=== PATIENT | male | born 1965 | race Caucasian/White ===

== ENCOUNTER 2020-04-18 04:23 | Observation (INO) | payer SELFPAY ==
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
[2020-04-18 05:04] LABS: Absolute Neutrophil Ct (ANC) 3.27 (1.4-6.9); BASOPHIL % 0.3 % (0.0-0.4); Basophil (Absolute #) 0.02 (0-0.4); Eosinophil % 1.3 % (0.00-5.0); Eosinophil (Absolute #) 0.08 (0-0.5); Hematocrit 49.2 % (42-50); Hemoglobin 16.8 gm/dl (12.5-18.0); Lymphocyte (Absolute #) 2.29 (1.0-4.6); Lymphocytes % 37.2 % (24.0-44.0); Mean Cell Volume 89.3 fl (78-100); Mean Corpuscular Hemoglobin 30.5 pg (26-32); Mean Corpuscular Hgb Concent. 34.1 g/dl (32-36); Mean Platelet Volume 11.1 fl (7.5-11.0); Monocytes % 8.1 % (0.0-12.0); Neutrophil % 53.1 % (36.0-66.0); Platelet Count 195 K/mm3 (150-450); Red Blood Count 5.51 M/mm3 (4.1-5.6); Red Cell Distribution Width 12.5 % (11.5-14.0); White Blood Count 6.2 K/mm3 (4.0-10.5)
[2020-04-18 05:20] LABS: ACETAMINOPHEN < 10 ug/ml (10-30); ALBUMIN 5.1 g/dL (3.5-5.0); ALKALINE PHOSPHATASE 86 U/L (38-126); ANION GAP 21.2 MEQ/L (5-15); BLOOD UREA NITROGEN 21 mg/dL (9-20); CHLORIDE 98 mmol/L (98-107); Calcium 9.8 mg/dL (8.4-10.2); Carbon Dioxide 24 mmol/L (22-30); Creatinine 1 1.05 mg/dL (0.66-1.25); Glucose 404 mg/dL (74-106); Potassium 5.5 mmol/L (3.5-5.1); SGOT/AST 21 U/L (17-59); SGPT/ALT 27 U/L (0-50); SODIUM 137 mmol/L (137-145); Total Protein 8.6 g/dL (6.3-8.2)
[2020-04-18 05:31] LABS: Appearance CLEAR (CLEAR); Bilirubin NEGATIVE (NEGATIVE); Blood NEGATIVE Ery/ul (0-5); Glucose >=500 mg/dL (NEGATIVE); Ketones NEGATIVE (NEGATIVE); Leukocyte Esterase NEGATIVE (NEGATIVE); Nitrite NEGATIVE (NEGATIVE); Protein,Urine Dip NEGATIVE (Negative); Urobilinogen NEGATIVE mg/dL (0-1)
[2020-04-18 05:37] LABS: Bacteria NONE SEEN /HPF (NEGATIVE); RBC NONE SEEN /HPF (0-2)
[2020-04-18 05:44] LABS: Amphetamine,Urine NEGATIVE (NEGATIVE); Barbiturate,Urine NEGATIVE (NEGATIVE); Benzodiazepine,Urine NEGATIVE (NEGATIVE); Cocaine,Urine NEGATIVE (NEGATIVE); Methadone,Urine NEGATIVE (NEGATIVE); Opiate,Urine NEGATIVE (NEGATIVE); PCP,Urine NEGATIVE (NEGATIVE); THC,Urine NEGATIVE (NEGATIVE)
[2020-04-18 05:58] LABS: VBG BASE EXCESS -2.4 (-2.0-2.0); VBG CARBOXYHEMOGLOBIN 2.2 % T HGB (0.0-6.9); VBG HCO3- 23.7 meq/L (22-28); VBG HEMOGLOBIN 16.1; VBG POTASSIUM 5.4 (3.5-5.1); VBG pH 7.33 (7.32-7.42)
[2020-04-18] MEDS ORDERED: Sodium Chloride 0.9% 1000 ML 1,000 ML ONE ×2 (06:03→07:06)
[2020-04-18] MEDS ORDERED: Sodium Chloride 0.9% 1000 ML 1,000 ML IV STA ×4 (06:04→18:08)
[2020-04-18] MEDS ORDERED: HUMULIN R IV ONE (06:31)
[2020-04-18] MEDS ORDERED: HUMULIN R ONE (06:37)
[2020-04-18] MEDS ORDERED: Ativan 2 MG/1 ML VIAL IV PRN (08:36)
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
[2020-04-18] MEDS: Effexor XR 75 MG PO SCH (10:28)
[2020-04-18] MEDS: Glucophage XR 500 MG PO SCH ×2 (10:28→21:46)
[2020-04-18] MEDS: VITAMIN B-1 100 MG PO SCH (10:30)
[2020-04-18] MEDS: Pepcid 20 MG VIAL IV SCH ×2 (10:30→21:47)
[2020-04-18] MEDS: Zestril 10 MG PO SCH (10:30)
[2020-04-18] MEDS: Sodium Chloride 0.9% 1000 ML 1,000 ML IV SCH (11:44)
[2020-04-18] MEDS: HUMALOG SQ PRN ×3 (13:13→18:07)
[2020-04-19] MEDS: Sodium Chloride 0.9% 1000 ML 1,000 ML IV SCH (03:55)
[2020-04-19 05:30] LABS: ALBUMIN 3.3 g/dL (3.5-5.0); ALKALINE PHOSPHATASE 58 U/L (38-126); ANION GAP 12.5 MEQ/L (5-15); BLOOD UREA NITROGEN 20 mg/dL (9-20); CHLORIDE 108 mmol/L (98-107); Carbon Dioxide 22 mmol/L (22-30); Creatinine 1 0.81 mg/dL (0.66-1.25); Glucose 109 mg/dL (74-106); Potassium 4.2 mmol/L (3.5-5.1); SGOT/AST 15 U/L (17-59); SGPT/ALT 17 U/L (0-50); SODIUM 139 mmol/L (137-145)
[2020-04-19 07:34] VITALS: BP 123/77; PULSE 79; O2SAT 97
[2020-04-19] MEDS: Zestril 10 MG PO SCH (09:16)
[2020-04-19] MEDS: VITAMIN B-1 100 MG PO SCH (09:16)
[2020-04-19] MEDS: Pepcid 20 MG VIAL IV SCH (09:16)
[2020-04-19] MEDS: Effexor XR 75 MG PO SCH (09:16)
[2020-04-19] MEDS: Glucophage XR 500 MG PO SCH (09:16)
[2020-04-19] MEDS ORDERED: EFFEXOR 37.5 MG PO SCH (10:00)
== END 2020-04-19 09:45 ==
LOC: ED 04:23 → MED SURG 08:20
PROVIDERS: ADMIT Family Medicine; ATTEND Family Medicine
DX: F10.929 Alcohol use, unspecified with intoxication, unspecified (principal); R45.851 Suicidal ideations; E11.9 Type 2 diabetes mellitus without complications; I10 Essential (primary) hypertension; Z79.899 Other long term (current) drug therapy
CPT/HCPCS: 36415; 80053; 80307; 81001; 82805; 82962; 83605; 85025; 93005; 96360; 96361; 96374; 99285; 99291; G0378; J1815; J1817; A9270-GY; G0480

== ENCOUNTER 2025-06-07 09:07 | Emergency (ER) | payer BC ==
--- NOTE | 2025-06-07 09:15 | ERPHSYRPT ---
- History of Present Illness Time Seen by Provider: 06/07/25 09:14 Source: patient, family Exam Limitations: no limitations Physician History: This is a 59-year-old overweight white male patient who arrives per private vehicle accompanied by spouse and is a patient of Dr. Lucero Cabrera with the complaint of generalized body aches, generalized weakness, vomiting and diarrhea symptoms. Symptoms have been present for approximately 1 week. Early on in the course he had vomiting and diarrhea. In the last 5 days or so he is now constipated. He denies chest pain. He denies shortness of breath. He has no known exposures to individuals similar symptoms. Patient did start Ozempic 3 weeks ago. Patient has a history of anxiety, depression, diabetes, hypertension and hyperlipidemia. He has a history of suicidal ideation. Patient states he is currently not suicidal or homicidal. Timing/Duration: week(s) (one), worse Severity: mild (Moderate) Associated Symptoms: nausea, vomiting, loss of appetite, weakness, other (Arthralgias and myalgias), No abdominal pain, No shortness of breath, No chest pain Allergies/Adverse Reactions: No Known Drug Allergies Allergy (Verified 06/07/25 09:38) Home Medications: Lisinopril 10 mg [Zestril 10 MG] 10 mg PO DAILY 04/18/20 [History] Venlafaxine HCl 37.5 mg [Effexor 37.5 mg] 150 mg PO DAILY 04/18/20 [History] Fenofibrate Nanocrystallized [Fenofibrate] 145 mg PO DAILY 06/07/25 [History] Insulin Degludec [Tresiba] 10 unit SQ DAILY 06/07/25 [History] Rosuvastatin Calcium 10 mg PO DAILY 06/07/25 [History] Hx Tetanus, Diphtheria Vaccination/Date Given: No (unsure) Hx Influenza Vaccination/Date Given: No Hx Pneumococcal Vaccination/Date Given: No Travel Risk - International Travel Have you traveled outside of the country in past 3 weeks: No - Emerging Infectious Disease Are you exhibiting symptoms associated with any current EIDs: No - Review of Systems Constitutional: Weakness Eyes: No Symptoms Ears, Nose, & Throat: No Symptoms Respiratory: No Symptoms Cardiac: No Symptoms Abdominal/Gastrointestinal: Nausea, Vomiting, Constipation, Appetite Changes, No Abdominal Pain, No Diarrhea Genitourinary Symptoms: No Symptoms Musculoskeletal: Arthralgias, Myalgias Skin: No Symptoms Neurological: No Symptoms Psychological: No Symptoms Endocrine: No Symptoms Hematologic/Lymphatic: No Symptoms Immunological/Allergic: No Symptoms All Other Systems: Reviewed and Negative - Past Medical History Pertinent Past Medical History: Yes Neurological History: No Pertinent History ENT History: No Pertinent History Cardiac History: Hypertension Respiratory History: No Pertinent History Endocrine Medical History: Diabetes Type II Musculoskeletal History: No Pertinent History GI Medical History: No Pertinent History History: No Pertinent History Psycho-Social History: Anxiety, Depression, Other Male Reproductive Disorders: No Pertinent History Other Medical History: sucidal ideation, attempt 6 months ago - Past Surgical History Past Surgical History: Yes Neuro Surgical History: No Pertinent History Cardiac: No Pertinent History Respiratory: No Pertinent History Gastrointestinal: No Pertinent History Genitourinary: No Pertinent History Musculoskeletal: No Pertinent History Male Surgical History: No Pertinent History - Social History Smoking Status: Never smoker Exposure to second hand smoke: No Drug Use: none - Nursing Vital Signs Nursing Vital Signs: Initial Vital Signs Temperature 99.2 F 06/07/25 09:30 Pulse Rate 103 H 06/07/25 09:30 Respiratory Rate 14 06/07/25 09:30 Blood Pressure 132/85 06/07/25 09:30 O2 Sat by Pulse Oximetry 99 06/07/25 09:30 Pain Scale Pain Intensity 8 - Physical Exam General Appearance: no apparent distress, alert, anxiety Eye Exam: PERRL/EOMI, eyes nml inspection Ears, Nose, Throat Exam: normal ENT inspection, moist mucous membranes Neck Exam: normal inspection, non-tender, supple, full range of motion Respiratory Exam: normal breath sounds, lungs clear, airway intact, No chest tenderness, No respiratory distress Cardiovascular Exam: regular rate/rhythm, normal heart sounds, normal peripheral pulses Gastrointestinal/Abdomen Exam: soft, normal bowel sounds, No tenderness Rectal Exam: not done Back Exam: normal inspection, normal range of motion, No CVA tenderness, No vertebral tenderness Extremity Exam: normal inspection, normal range of motion, pelvis stable Neurologic Exam: alert, oriented x 3, cooperative, chief innovation officer II-XII nml as tested, nml cerebellar function, nml station & gait, sensation nml Skin Exam: normal color, warm, dry Lymphatic Exam: No adenopathy SpO2 Interpretation: normal O2 Delivery: Room Air - Course Nursing assessment & vital signs reviewed: Yes EKG Interpreted by Me: RATE (101), Sinus Rhythm, NORMAL AXIS, NORMAL INTERVALS, NORMAL QRS, Other (QTc is 435. There is no evidence of any acute ischemia.) Ordered Tests: Active Orders 24 hr Category Date Time Status EKG-ER Only STAT Care 06/07/25 10:19 Active IV Insertion STAT Care 06/07/25 10:19 Active AMYLASE Stat Lab 06/07/25 10:45 Completed CBC W DIFF Stat Lab 06/07/25 10:45 Completed CMP Stat Lab 06/07/25 10:45 Completed LIPASE Stat Lab 06/07/25 10:45 Completed Lactic Acid Stat Lab 06/07/25 12:44 Completed MAGNESIUM Stat Lab 06/07/25 10:45 Completed MONO SCREEN Stat Lab 06/07/25 10:45 Completed POCT GLUCOSE Stat Lab 06/07/25 10:35 Completed TROPONIN Q4H Lab 06/07/25 10:45 Completed TROPONIN Q4H Lab 06/07/25 14:30 Ordered TROPONIN Q4H Lab 06/07/25 18:30 Ordered UA W/RFX UR CULTURE Stat Lab 06/07/25 13:43 Completed Medication Summary Discontinued Medications Generic Name Dose Route Start Last Admin Trade Name Freq PRN Reason Stop Dose Admin Sodium Chloride 1,000 mls @ 999 mls/hr 06/07/25 10:19 06/07/25 12:41 Sodium Chloride 0.9% 1000 Ml IV 06/07/25 11:19 Infused .Q1H1M STA Infusion Sodium Chloride Confirm 06/07/25 10:38 Sodium Chloride 0.9% 1000 Ml Administered 06/07/25 10:39 Dose 1,000 mls @ ud .ROUTE .STK-MED ONE Sodium Chloride 500 mls @ 500 mls/hr 06/07/25 12:47 06/07/25 13:58 Sodium Chloride 0.9% 500 Ml IV 06/07/25 13:46 Infused .Q1H ONE Infusion Sodium Chloride Confirm 06/07/25 12:52 Sodium Chloride 0.9% 500 Ml Administered 06/07/25 12:53 Dose 500 mls @ ud IV .STK-MED ONE Ondansetron HCl 4 mg 06/07/25 10:19 06/07/25 10:41 Ondansetron Hcl 4 Mg/2 Ml Vial IV 06/07/25 10:20 4 mg STAT ONE Administration Ondansetron HCl Confirm 06/07/25 10:38 Ondansetron Hcl 4 Mg/2 Ml Vial Administered 06/07/25 10:39 Dose 4 mg .ROUTE .K-[facility] ONE Pantoprazole Sodium 40 mg 06/07/25 10:19 06/07/25 10:41 Pantoprazole 40 Mg Vial IV 06/07/25 10:20 40 mg STAT ONE Administration Pantoprazole Sodium Confirm 06/07/25 10:38 Pantoprazole 40 Mg Vial Administered 06/07/25 10:39 Dose 40 mg IV .[facility] ONE Lab/Rad Data: Laboratory Result Diagrams 06/07/25 10:45 06/07/25 10:45 Laboratory Results 06/07/25 06/07/25 06/07/25 Range/Units 13:43 12:44 10:45 WBC (4.23-9.07) x10^3/uL RBC (4.63-6.08) x10^6/uL Hgb (13.7-17.5) g/dL Hct (40.1-51.0) % MCV (79.0-92.2) fL MCH (25.7-32.2) pg MCHC (32.3-36.5) g/dL RDW (11.6-14.4) % Plt Count (163-337) x10^3/uL MPV (9.4-12.4) fL Gran % (34.0-67.9) % Immature Gran % (Auto) (0.001-0.429) % Nucleat RBC Rel Count (0.00-0.2) % Eos # (Auto) (0.04-0.54) x10^3/uL Immature Gran # (Auto) (0.001-0.031) x10^3u/L Absolute Lymphs (auto) (1.32-3.57) x10^3/uL Absolute Monos (auto) (0.30-0.82) x10^3/uL Absolute Nucleated RBC (0.00-0.012) x10^3u/L Lymphocytes % (21.8-53.1) % Monocytes % (5.3-12.2) % Eosinophils % (0.8-7.0) % Basophils % (0.2-1.2) % Absolute Granulocytes (1.78-5.38) x10^3/uL Basophils # (0.01-0.08) x10^3/uL Sodium (135-145) mmol/L Potassium (3.5-5.1) mmol/L Chloride (98-107) mmol/L Carbon Dioxide (22-30) mmol/L Anion Gap (5-15) MEQ/L BUN (9-20) mg/dL Creatinine (0.66-1.25) mg/dL Estimated GFR ML/MIN Glucose (74-106) mg/dL POC Glucometer (74 to 106) mg/dL Lactic Acid 2.0 (0.4-2.0) Calcium (8.4-10.2) mg/dL Magnesium (1.6-2.3) mg/dL Total Bilirubin (0.2-1.3) mg/dL AST (17-59) U/L ALT (0-50) U/L Alkaline Phosphatase (38-126) U/L Troponin I (0.000-0.033) ng/mL Serum Total Protein (6.3-8.2) g/dL Albumin (3.5-5.0) g/dL Amylase (30-110) U/L Lipase (23-300) U/L Urine Color Dark Yellow (Yellow) Urine Appearance Clear (Clear) Urine pH 6.5 (4.6-8.0) Ur Specific [place] 1.020 (1.005-1.030) Urine Protein 300 A (Negative) Urine Glucose (UA) Negative (Negative) mg/dL Urine Ketones 15 A (Negative) Urine Blood Negative (Negative) Urine Nitrite Negative (Negative) Urine Bilirubin Negative (Negative) Urine Urobilinogen 1.0 A (0.2) mg/dL Ur Leukocyte Esterase Negative (Negative) U Hyaline Cast (Auto) 11-20 (0-2) /LPF Urine Microscopic RBC 3-5 (0-5) /HPF Urine Microscopic WBC 0-2 (0-5) /HPF Ur Epithelial Cells Rare (None Seen) /HPF Urine Bacteria None Seen (None Seen) /HPF Urine Culture Reflexed NO (NO) Monoscreen NEGATIVE (NEGATIVE) Influenza Type A Ag (NEGATIVE) Influenza Type B Ag (NEGATIVE) RSV (PCR) (NEGATIVE) SARS-CoV-2 (PCR) (NEGATIVE) 06/07/25 06/07/25 06/07/25 Range/Units 10:45 10:45 10:45 WBC 8.9 (4.23-9.07) x10^3/uL RBC 5.15 (4.63-6.08) x10^6/uL Hgb 15.1 (13.7-17.5) g/dL Hct 45.1 (40.1-51.0) % MCV 87.6 (79.0-92.2) fL MCH 29.3 (25.7-32.2) pg MCHC 33.5 (32.3-36.5) g/dL RDW 11.9 (11.6-14.4) % Plt Count 180 (163-337) x10^3/uL MPV 10.1 (9.4-12.4) fL Gran % 79.9 H (34.0-67.9) % Immature Gran % (Auto) 0.2 (0.001-0.429) % Nucleat RBC Rel Count 0.0 (0.00-0.2) % Eos # (Auto) 0 L (0.04-0.54) x10^3/uL Immature Gran # (Auto) 0.02 (0.001-0.031) x10^3u/L Absolute Lymphs (auto) 0.98 L (1.32-3.57) x10^3/uL Absolute Monos (auto) 0.77 (0.30-0.82) x10^3/uL Absolute Nucleated RBC 0.00 (0.00-0.012) x10^3u/L Lymphocytes % 11.1 L (21.8-53.1) % Monocytes % 8.7 (5.3-12.2) % Eosinophils % 0.0 L (0.8-7.0) % Basophils % 0.1 L (0.2-1.2) % Absolute Granulocytes 7.08 H (1.78-5.38) x10^3/uL Basophils # 0.01 (0.01-0.08) x10^3/uL Sodium 131 L (135-145) mmol/L Potassium 4.8 (3.5-5.1) mmol/L Chloride 94 L (98-107) mmol/L Carbon Dioxide 25 (22-30) mmol/L Anion Gap 16.4 H (5-15) MEQ/L BUN 29 H (9-20) mg/dL Creatinine 1.42 H (0.66-1.25) mg/dL Estimated GFR 56.9 ML/MIN Glucose 137 H (74-106) mg/dL POC Glucometer (74 to 106) mg/dL Lactic Acid (0.4-2.0) Calcium 9.3 (8.4-10.2) mg/dL Magnesium 1.6 (1.6-2.3) mg/dL Total Bilirubin 1.00 (0.2-1.3) mg/dL AST 33 (17-59) U/L ALT 46 (0-50) U/L Alkaline Phosphatase 60 (38-126) U/L Troponin I < 0.012 (0.000-0.033) ng/mL Serum Total Protein 6.8 (6.3-8.2) g/dL Albumin 4.0 (3.5-5.0) g/dL Amylase 72 (30-110) U/L Lipase 53 (23-300) U/L Urine Color (Yellow) Urine Appearance (Clear) Urine pH (4.6-8.0) Ur Specific [place] (1.005-1.030) Urine Protein (Negative) Urine Glucose (UA) (Negative) mg/dL Urine Ketones (Negative) Urine Blood (Negative) Urine Nitrite (Negative) Urine Bilirubin (Negative) Urine Urobilinogen (0.2) mg/dL Ur Leukocyte Esterase (Negative) U Hyaline Cast (Auto) (0-2) /LPF Urine Microscopic RBC (0-5) /HPF Urine Microscopic WBC (0-5) /HPF Ur Epithelial Cells (None Seen) /HPF Urine Bacteria (None Seen) /HPF Urine Culture Reflexed (NO) Monoscreen (NEGATIVE) Influenza Type A Ag (NEGATIVE) Influenza Type B Ag (NEGATIVE) RSV (PCR) (NEGATIVE) SARS-CoV-2 (PCR) (NEGATIVE) 06/07/25 06/07/25 Range/Units 10:40 10:35 WBC (4.23-9.07) x10^3/uL RBC (4.63-6.08) x10^6/uL Hgb (13.7-17.5) g/dL Hct (40.1-51.0) % MCV (79.0-92.2) fL MCH (25.7-32.2) pg MCHC (32.3-36.5) g/dL RDW (11.6-14.4) % Plt Count (163-337) x10^3/uL MPV (9.4-12.4) fL Gran % (34.0-67.9) % Immature Gran % (Auto) (0.001-0.429) % Nucleat RBC Rel Count (0.00-0.2) % Eos # (Auto) (0.04-0.54) x10^3/uL Immature Gran # (Auto) (0.001-0.031) x10^3u/L Absolute Lymphs (auto) (1.32-3.57) x10^3/uL Absolute Monos (auto) (0.30-0.82) x10^3/uL Absolute Nucleated RBC (0.00-0.012) x10^3u/L Lymphocytes % (21.8-53.1) % Monocytes % (5.3-12.2) % Eosinophils % (0.8-7.0) % Basophils % (0.2-1.2) % Absolute Granulocytes (1.78-5.38) x10^3/uL Basophils # (0.01-0.08) x10^3/uL Sodium (135-145) mmol/L Potassium (3.5-5.1) mmol/L Chloride (98-107) mmol/L Carbon Dioxide (22-30) mmol/L Anion Gap (5-15) MEQ/L BUN (9-20) mg/dL Creatinine (0.66-1.25) mg/dL Estimated GFR ML/MIN Glucose (74-106) mg/dL POC Glucometer 127 H (74 to 106) mg/dL Lactic Acid (0.4-2.0) Calcium (8.4-10.2) mg/dL Magnesium (1.6-2.3) mg/dL Total Bilirubin (0.2-1.3) mg/dL AST (17-59) U/L ALT (0-50) U/L Alkaline Phosphatase (38-126) U/L Troponin I (0.000-0.033) ng/mL Serum Total Protein (6.3-8.2) g/dL Albumin (3.5-5.0) g/dL Amylase (30-110) U/L Lipase (23-300) U/L Urine Color (Yellow) Urine Appearance (Clear) Urine pH (4.6-8.0) Ur Specific [place] (1.005-1.030) Urine Protein (Negative) Urine Glucose (UA) (Negative) mg/dL Urine Ketones (Negative) Urine Blood (Negative) Urine Nitrite (Negative) Urine Bilirubin (Negative) Urine Urobilinogen (0.2) mg/dL Ur Leukocyte Esterase (Negative) U Hyaline Cast (Auto) (0-2) /LPF Urine Microscopic RBC (0-5) /HPF Urine Microscopic WBC (0-5) /HPF Ur Epithelial Cells (None Seen) /HPF Urine Bacteria (None Seen) /HPF Urine Culture Reflexed (NO) Monoscreen (NEGATIVE) Influenza Type A Ag NEGATIVE (NEGATIVE) Influenza Type B Ag NEGATIVE (NEGATIVE) RSV (PCR) NEGATIVE (NEGATIVE) SARS-CoV-2 (PCR) NEGATIVE (NEGATIVE) - Progress Progress: improved, re-examined Progress Note: 06/07/25 10:18 My medical decision making and the assignment of moderate complexity of this patient's medical issue today is based on review of the patient's past medical history, reviewed patient's medication list, reviewed patient drug allergy list, history present illness and physical findings on examination. The workup in this patient includes placement of intravenous line, infusion of normal saline solution, infusion of antiemetic, infusion of Protonix, CBC, CMP, amylase, lipase, urinalysis, magnesium level, viral swabs, monotest, twelve-lead EKG, troponin level Differential diagnosis includes was not limited to medication side effect, dehydration, urinary tract infection, viral illness, electrolyte abnormalities, arrhythmia 06/07/25 13:59 I interpreted the patient's laboratory data results. Based on laboratory results, there are no acute emergent medical issues. He does have evidence of dehydration based on ketonuria. Patient has received 1-1/2 L of crystalloid infusion. Clinically, he is feeling better. Counseled pt/family regarding: lab results, diagnosis, need for follow-up Medical Desision Making - Independent Historian Additional History obtained from: Spouse - Diagnostic Testing Diagnostic test were ordered, analyzed, and reviewed by me: Yes - Risk of complications Low Risk: Low risk of morbidity from additional dx testing or treatment The pt has a mod risk of morbidity or mortality based on: Need for prescription drug management - Departure Departure Disposition: Home Clinical Impression: Vomiting, Medication side effect, Dehydration Condition: Stable Critical Care Time: No Referrals: JERAD CABRERA [Primary Care Provider, [facility]] - Follow up/PCP as directed Additional Instructions: Start with a clear liquid diet and slowly advance your diet to your usual diabetic diet. Avoid fatty greasy spicy foods. Hold on the Ozempic medication until you have spoken to your provider. Call them on 06/09/2025, to make arrangements for follow-up appointment to be seen in the next 3 to 5 days. Prescriptions: Ondansetron ODT 4 MG [Zofran Odt 4 mg] 4 mg PO Q6H PRN PRN #10 tablet PRN Reason: Vomiting
[2025-06-07 09:38] VITALS: TEMP 99.2
[2025-06-07] MEDS ORDERED: Zofran 4 MG/2 ML VIAL ONE (10:38)
[2025-06-07] MEDS ORDERED: PROTONIX 40 MG IV IV ONE (10:38)
[2025-06-07] MEDS: Zofran 4 MG/2 ML VIAL IV ONE (10:41)
[2025-06-07] MEDS: PROTONIX 40 MG IV IV ONE (10:41)
[2025-06-07 10:43] VITALS: PULSE 101; RESP 14
[2025-06-07 10:47] LABS: BASOPHIL % 0.1 % (0.2-1.2); Basophil (Absolute #) 0.01 x10^3/uL (0.01-0.08); Eosinophil (Absolute #) 0 x10^3/uL (0.04-0.54); Hematocrit 45.1 % (40.1-51.0); Hemoglobin 15.1 g/dL (13.7-17.5); IMMATURE GRAN # 0.02 x10^3u/L (0.001-0.031); IMMATURE GRAN % 0.2 % (0.001-0.429); Lymphocyte (Absolute #) 0.98 x10^3/uL (1.32-3.57); Mean Corpuscular Hemoglobin 29.3 pg (25.7-32.2); Mean Corpuscular Hgb Concent. 33.5 g/dL (32.3-36.5); Monocyte (Absolute #) 0.77 x10^3/uL (0.30-0.82); NUCLEATED RBC # 0.00 x10^3u/L (0.00-0.012); NUCLEATED RBC % 0.0 % (0.00-0.2); Platelet Count 180 x10^3/uL (163-337); Red Blood Count 5.15 x10^6/uL (4.63-6.08); White Blood Count 8.9 x10^3/uL (4.23-9.07)
[2025-06-07 11:02] LABS: Calcium 9.3 mg/dL (8.4-10.2); Carbon Dioxide 25.0 mmol/L (22-30); Creatinine 1 1.42 mg/dL (0.66-1.25); EST GLOMERULAR FILTRATION RATE 56.9 ML/MIN; Glucose 137.0 mg/dL (74-106); Potassium 4.8 mmol/L (3.5-5.1); SGOT/AST 33.0 U/L (17-59); SGPT/ALT 46.0 U/L (0-50); Total Protein 6.8 g/dL (6.3-8.2)
[2025-06-07 11:08] VITALS: O2SAT 96
[2025-06-07 11:24] LABS: INFLUENZA A NEGATIVE (NEGATIVE); INFLUENZA B NEGATIVE (NEGATIVE); RESPIRATORY SYNCTIAL VIRUS NEGATIVE (NEGATIVE); SARS-CoV-2 Xpert Express NEGATIVE (NEGATIVE)
[2025-06-07 13:55] LABS: Glucose, Urine Negative (Negative); Protein,Urine Dip 300 (Negative); WBC 0-2 /HPF (0-5)
[2025-06-07 14:04] VITALS: BP 144/82
== END 2025-06-07 14:11 | disposition home or self-care (01) ==
LOC: ED 09:07
DX: R11.2 Nausea with vomiting, unspecified (principal); T50.995A Adverse effect of other drugs, medicaments and biological substances, initial encounter; E86.0 Dehydration; M79.10 Myalgia, unspecified site; R53.1 Weakness; E11.9 Type 2 diabetes mellitus without complications; I10 Essential (primary) hypertension; Z79.4 Long term (current) use of insulin; Z79.85 Long-term (current) use of injectable non-insulin antidiabetic drugs; Z79.899 Other long term (current) drug therapy